=== PATIENT | female | born 2000 | race Caucasian/White ===

== ENCOUNTER 2018-09-02 07:19 | Emergency (ER) | payer OTHER ==
[~2018-09-02] VITALS: Wt 60.0 kg
[~2018-09-02 07:19] MED LIST: BEN25 PO; CETI10CA PO; PRED20TA PO; TRIA15CR55 TOP
[2018-09-02 07:22] VITALS: BP 132/70; PULSE 70; RESP 18
[2018-09-02] MEDS ORDERED: AZIT250T PO (07:41)
[2018-09-02] MEDS ORDERED: ERYT1OIN6 BOTH EYES (07:41)
--- NOTE | 2018-09-02 07:45 | ERD ---
ER Documentation Chief Complaint Chief Complaint JUAN PABLO EYE ITCHING HPI 17-year-old female presents with bilateral eye itchiness and redness that began last night. She is also states she has had a cough and congestion for over 1 month. She is tried several [id number] medications without any relief. She also admits to fevers at home. No nausea vomiting or diarrhea. ROS All systems reviewed and are negative except as per history of present illness. Medications Home Meds Active Scripts Erythromycin Base (Erythromycin) 1 Gm Oint...g., 1 APPLIC BOTH EYES QID for 7 Days Prov:LYLE COWART PA-C 09/02/18 Azithromycin* (Zithromax*) 250 Mg Tablet, 250 MG PO .ZPACK DIRECTED, #6 TAB TAKE 500 MG (2 TABS) THE FIRST DAY THEN 250 MG (1 TAB) DAYS 2-5 Prov:LYLE COWART PA-C 09/02/18 Diphenhydramine Hcl* (Benadryl*) 25 Mg Cap, 25 MG PO Q6 PRN for ITCHING/RASH, #30 TAB Prov:SARAH NAVARRO PA-C 01/25/16 Prednisone* (Prednisone*) 20 Mg Tab, 40 MG PO DAILY for 5 Days, TAB Prov:LIZ NORRIS MD 10/31/14 Cetirizine Hcl* (Zyrtec*) 10 Mg Capsule, 10 MG PO DAILY, #14 TAB.CHEW Prov:LIZ NORRIS MD 10/31/14 Triamcinolone Acetonide (Triamcinolone Acetonide) 0.1% - 15 Gm Cream.gm., 1 APPLIC TOP TID for rash for 7 Days, TUB 1 Refill 30g ok Prov:LIZ NORRIS MD 10/31/14 Allergies Allergies: Coded Allergies: No Known Allergy (Unverified , 09/02/18) PMhx/Soc Medical and Surgical Hx: pt denies Medical Hx, pt denies Surgical Hx Hx Alcohol Use: No Hx Substance Use: No Hx Tobacco Use: No Smoking Status: Never smoker FmHx Family History: No diabetes Physical Exam Vitals Vital Signs Date Temp Pulse Resp B/P (MAP) Pulse Ox O2 O2 Flow FiO2 Time Delivery Rate 09/02/18 98.1 70 18 132/70 99 07:22 (90) Physical Exam INITIAL VITAL SIGNS: Reviewed by me GENERAL: Awake, alert and oriented x 4, well appearing, nontoxic, speaking in full sentences. No acute distress HEAD: Atraumatic NECK: Supple. No masses. Full range of motion. No meningismus. No midline tenderness. EYES: EOMI. PERRL, bilateral conjunctiva is mildly injected. THROAT: No tonilar erythema or edema. No exudates. Uvula midline. No kissing tonsils. Hoarse voice RESPIRATORY: Clear to auscultation bilaterally. Symmetric chest wall rise. No wheezing or rales. No accessory muscle use. CV: Regular rate and rhythm. No murmurs, rubs, or gallops. Procedures/MDM This patient has conjunctivitis likely allergic versus viral however I still will give her a prescription for erythromycin ophthalmic ointment. She is also had flulike symptoms for over a month. She is afebrile. Because of the duration of symptoms have been so long I will start her on a Z-Robert. Patient counseled regarding my diagnostic impression and care plan. Prior to discharge all questions answered. Pt agrees with treatment plan and understands strict return precautions. Pt is instructed to follow up with primary care provider within 24-48 hours. Precautionary instructions provided including instructions to return to the ER if not improving or for any worsening or changing symptoms or concerns. Departure Diagnosis: Primary Impression: Bronchitis Additional Impression: Eye problem Condition: Stable Patient Instructions: Bronchitis, Antiobiotic Treatment (Adult) Additional Instructions: Call your primary care doctor TOMORROW for an appointment during the next 1-2 days.See the doctor sooner or return here if your condition worsens before your appointment time. LYLE COWART PA-C September 02, 2018 07:45
== END 2018-09-02 07:49 | disposition home or self-care (01) ==
LOC: FTE 07:19
DX: J40 Bronchitis, not specified as acute or chronic (principal); H57.9 Unspecified disorder of eye and adnexa
CPT/HCPCS: 99283